=== PATIENT | female | born 1945 | race Caucasian/White ===

== ENCOUNTER → 2018-03-15 | Outpatient (CLI) | payer MEDICARE ==
--- NOTE | 2018-03-15 13:00 | US ---
EXAMINATION TYPE: US kidneys/renal and bladder DATE OF EXAM: 03/15/2018 COMPARISON: NONE CLINICAL HISTORY: N14.30 R Hydonephrosis. History of right hydronephrosis and kidney stones per patie nt EXAM MEASUREMENTS: Right Kidney: 10.2 x 3.7 x 4.0 cm Left Kidney: 8.8 x 4.1 x 4.0 cm Right Kidney: fullness to renal pelvis Left Kidney: no evidence of hydronephrosis Bladder: difficult to visualize Bilateral Jets seen: no There is no evidence for hydronephrosis at this point in time. No nephrolithiasis is seen. No wil s are identified. The urinary bladder is anechoic. Bilateral ureteral jets are seen. IMPRESSION: Minimal caliectasis on the right without aminah hydronephrosis of either kidney. Punctate nonshadowing areas are seen within both kidneys that could relate to a very small renal calculi however no discre te renal calculi are seen.
== END | disposition home or self-care (01) ==
LOC: RADUSWWP 11:23
PROVIDERS: ATTEND Urology
DX: N28.89 Other specified disorders of kidney and ureter (principal); Z88.8 Allergy status to other drugs, medicaments and biological substances
CPT/HCPCS: 76770

== ENCOUNTER → 2018-10-26 | Outpatient (CLI) | payer MEDICARE ==
--- NOTE | 2018-10-26 17:18 | PE ---
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 TECHNIQUE: Following the intravenous administration of 11.25 mCi of F-18 FDG, whole body images are performed from the skull base to the midthigh. Images are reviewed on the computer in the coronal, a xial, and sagittal planes. Reconstructed rotating images are created on independent workstation and reviewed on the computer. A noncontrast CT is performed in conjunction with the PET scan. SCAN: Subsequent Scan FINDINGS: SKULL BASE AND NECK: No areas of suspicious hypermetabolic uptake. CHEST, MEDIASTINUM, AND HILAR REGION: Slightly prominent left axillary lymph node measures 1.3 x 0.9 cm axial image 80 with mild hypermetabolic uptake, max SUV 1.78. No areas of suspicious hypermetaboli c uptake in the thorax are identified including throughout the left breast. ABDOMEN AND PELVIS: Difficult to evaluate lymph nodes versus bowel on Noncontrast CT Suspect hypermet abolic mass or adenopathy just below left hepatic lobe measuring to 2.4 x 2.3 cm image 141, max SUV i s 8.08. Additional abnormal lymph node suspected inferior peripancreatic region just anterior to the aortocaval space axial image 151 measuring 1.2 cm, max SUV 6.6. Abnormal lymph node or mass left dahlia gastric region measuring 2.8 x 1.8 cm axial image 155 with max SUV of 5.65. Some hypermetabolic soft tissue prominence inferior rectus sheath measures 3.4 x 1.7 cm image 181 with max SUV of 6.25. Nonspe cific posterior ball uptake and pelvis axial image 202 max SUV 5.27. Additional focus of hypermetabol ic uptake left mid abdominal wall max SUV 4.53 axial image 168. OSSEOUS STRUCTURES: No suspicious hypermetabolic uptake. OTHER CT: Mild calcified plaque bilateral carotid bulb level. Moderate to severe three-vessel coronary artery calcification which is noted marked underlying tim ry artery disease. Small focal anterior-inferior pericardial effusion axial image 124. Trace perihepatic and perisplenic ascites. Pneumobilia correlates with history of Whipple surgery. Sm all amount of free fluid in pelvis axial image 204 was scattered pelvic phleboliths. Osseous structures are demineralized. Grade 1 anterolisthesis L4 on L5. Multilevel facet arthropathy lower lumbar spine. IMPRESSION: Local neoplastic recurrence upper to mid abdomen is felt present with some involvement lo wer abdominal rectus sheath and pelvic bowel loops difficult to exclude.
== END | disposition home or self-care (01) ==
LOC: RADPETMAIN 09:09
PROVIDERS: ATTEND Internal Medicine Hematology & Oncology
DX: C76.2 Malignant neoplasm of abdomen (principal)
CPT/HCPCS: 78815; A9552

== ENCOUNTER 2018-10-31 | Emergency (ER) | payer MEDICARE ==
--- NOTE | 2018-10-31 12:05 | ED ---
Recheck HPI - General Chief Complaint: Recheck/Abnormal Lab/Rx Stated Complaint: elevated BP Time Seen by Provider: 10/31/18 11:43 Source: patient, RN notes reviewed, old records reviewed Mode of arrival: ambulatory Limitations: no limitations - History of Present Illness Initial Comments: This is a 3-year-old female the ER for evaluation, patient presented for outpatient procedure, blood pressure was noted to be elevated and sent over the ER for evaluation. Patient's asymptomatic chest pain shortness breath or abdominal pain, patient did take medications as prescribed this morning MD Complaint: abnormal lab (Increased blood pressure) -: unknown Returns Today for: other (Patient's sent over for evaluation of increased blood pressure) Symptoms Since Prior Visit: no new symptoms Associated Symptoms: none Treatments Prior to Arrival: other medications (Patient did take her home blood pressure medication) - Related Data Home Medications Medication Instructions Recorded Confirmed Acetaminophen Tab [Tylenol Tab] 500 mg PO Q4H PRN 10/21/18 10/31/18 Ascorbic Acid [Vitamin C] 500 mg PO DAILY 10/21/18 10/31/18 Cholecalciferol (Vitamin D3) 2,000 unit PO DAILY 10/21/18 10/31/18 [Vitamin D3] Ferrous Sulfate [Feosol] 325 mg PO Q48H 10/21/18 10/31/18 Lipase/Protease/Amylase [Creon Dr 4 cap PO TID 10/21/18 10/31/18 6,000 Units Capsule] Losartan Potassium 50 mg PO DAILY 10/21/18 10/31/18 Magnesium Oxide [Mag-Ox] 250 mg PO DAILY 10/21/18 10/31/18 Metoprolol Tartrate [Lopressor] 25 mg PO DAILY 10/21/18 10/31/18 Omeprazole 20 mg PO DAILY 10/21/18 10/31/18 Zinc 50 mg PO DAILY 10/21/18 10/31/18 Hydrochlorothiazide [Hydrodiuril] 25 mg PO DAILY 10/31/18 10/31/18 Previous Rx's Medication Instructions Recorded Hydrochlorothiazide [Hydrodiuril] 25 mg PO DAILY #30 tab 10/31/18 Allergies Allergy/AdvReac Type Severity Reaction Status Date / Time clarithromycin [From Biaxin] AdvReac LOST TASTE Verified 10/31/18 15:48 Review of Systems ROS Statement: Those systems with pertinent positive or pertinent negative responses have been documented in the HPI. ROS Other: All systems not noted in ROS Statement are negative. 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, bilateral cataracts History of Any Multi-Drug Resistant Organisms: None Reported Past Surgical History: Cholecystectomy, Tonsillectomy Additional Past Surgical History / Comment(s): whipple June 25, 2017, left knee replacement 1999, cholecystectomy, D & C in , tonsillectomy , EGD October 09, paracentesis times 2 in the past Past Anesthesia/Blood Transfusion Reactions: No Reported Reaction Additional Past Anesthesia/Blood Transfusion Reaction / Comment(s): no previous blood transfusion Past Psychological History: No Psychological Hx Reported Smoking Status: Never smoker Past Alcohol Use History: None Reported Past Drug Use History: None Reported - Past Family History Mother Family Medical History: CVA/TIA, Diabetes Mellitus, Hypertension, Osteoarthritis (OA) Father Additional Family Medical History / Comment(s): empyhsema General Exam Limitations: no limitations General appearance: alert, in no apparent distress Head exam: Present: atraumatic, normocephalic, normal inspection Eye exam: Present: normal appearance, PERRL, EOMI. Absent: scleral icterus, conjunctival injection, periorbital swelling ENT exam: Present: normal exam, mucous membranes moist Neck exam: Present: normal inspection. Absent: tenderness, meningismus, lymphadenopathy Respiratory exam: Present: normal lung sounds bilaterally. Absent: respiratory distress, wheezes, rales, rhonchi, stridor Cardiovascular Exam: Present: regular rate, normal rhythm, normal heart sounds. Absent: systolic murmur, diastolic murmur, rubs, gallop, clicks GI/Abdominal exam: Present: soft, normal bowel sounds. Absent: distended, tenderness, guarding, rebound, rigid Extremities exam: Present: normal inspection, full ROM, normal capillary refill. Absent: tenderness, pedal edema, joint swelling, calf tenderness Back exam: Present: normal inspection Neurological exam: Present: alert, oriented X3, CN II-XII intact Psychiatric exam: Present: normal affect, normal mood Skin exam: Present: warm, dry, intact, normal color. Absent: rash Course Vital Signs 10/31/18 10/31/18 11:34 12:29 Temperature 97.9 F Pulse Rate 64 55 L Respiratory 20 16 Rate Blood Pressure 177/80 168/87 O2 Sat by Pulse 99 99 Oximetry Medical Decision Making - Medical Decision Making 73 female, patient will be discharged home, started on new blood pressure medication. Patient remains asymptomatic, no headache chest pain shortness of breath or abdominal pain. Disposition Clinical Impression: Hypertension Disposition: HOME SELF-CARE Condition: Good Instructions (If sedation given, give patient instructions): Chronic Hypertension (ED), Hypertension (ED) Prescriptions: Hydrochlorothiazide [Hydrodiuril] 25 mg PO DAILY #30 tab Is patient prescribed a controlled substance at d/c from ED?: No Referrals: Chip Boo DO [Primary Care Provider] - 1-2 days
== END 2018-10-31 12:25 | disposition home or self-care (01) ==
CPT/HCPCS: 99283

== ENCOUNTER 2018-10-31 12:16 | Day surgery (SDC) | payer MEDICARE ==
[2018-10-31 09:07] VITALS: RESP 20; TEMP 98.1
[2018-10-31 09:35] LABS: Mean Platelet Volume 7.7; Platelet Count 130 k/uL (150-450)
[2018-10-31 09:41] LABS: Prothrombin Time 11.1 sec (9.0-12.0)
[2018-10-31 11:49] VITALS: BP 195/100; PULSE 67
[~2018-10-31 12:16] MED LIST: ALPRAZolam 0.25 MG TAB PO STA
--- NOTE | 2018-10-31 15:56 | US ---
Discontinued biopsy abdominal mass HISTORY: Abdominal mass, abnormal PET/CT Correlation to PET CT 10/26/2018 Real-time ultrasound demonstrates the heterogeneous mass measuring approximately 2 cm in diameter in the left hemiabdomen just deep to the rectus musculature. Patient shows multiple elevated blood pressure measurements prior to the biopsy. Biopsy is aborted at this time. Patient to be rescheduled. IMPRESSION: Discontinued abdominal biopsy
== END 2018-10-31 12:21 | disposition home or self-care (01) ==
LOC: RADPROMAIN 12:16
PROVIDERS: ATTEND Internal Medicine Hematology & Oncology
DX: R93.5 Abnormal findings on diagnostic imaging of other abdominal regions, including retroperitoneum (principal); C24.1 Malignant neoplasm of ampulla of Vater; Z53.8 Procedure and treatment not carried out for other reasons; R03.0 Elevated blood-pressure reading, without diagnosis of hypertension
CPT/HCPCS: 36415; 76536; 85049; 85610

== ENCOUNTER → 2018-11-11 | Day surgery (SDC) | payer MEDICARE ==
[2018-11-11 08:57] VITALS: TEMP 97.5
[2018-11-11 09:04] LABS: Mean Platelet Volume 7.4; Platelet Count 190 k/uL (150-450)
[2018-11-11 09:07] LABS: Prothrombin Time 11.1 sec (9.0-12.0)
[2018-11-11 10:27] VITALS: RESP 16
[2018-11-11 12:06] VITALS: BP 129/79
--- NOTE | 2018-11-11 12:38 | US ---
EXAMINATION TYPE: US biopsy abd/retroperi mass DATE OF EXAM: 11/11/2018 HISTORY: Abdominal mass, history ampullary cancer. FINDINGS: Maximal barrier technique was utilized. The skin overlying a suitable path to the patient' s anterior abdominal mass was localized with ultrasound and the overlying skin prepped and draped. U ltrasound was utilized with sterile technique. Lidocaine was used for local anesthesia. A skin pamela was made with a scalpel. An 18-gauge needle was advanced under direct ultrasound guidance and core specimen obtained of the mass. Specimen submitted in formalin to Pathology. Following the procedure , hemostasis achieved and the patient is discharged in stable condition without complication. IMPRESSION:STATUS POST ULTRASOUND GUIDED CORE BIOPSY OF abdominal MASS, PATHOLOGY IS PENDING. THIS P ROCEDURE IS PERFORMED BY THE UNDERSIGNED.
[2018-11-11 12:55] VITALS: PULSE 64
== END | disposition home or self-care (01) ==
LOC: RADPROMAIN 08:25
PROVIDERS: ATTEND Internal Medicine Hematology & Oncology
DX: C78.6 Secondary malignant neoplasm of retroperitoneum and peritoneum (principal); Z85.09 Personal history of malignant neoplasm of other digestive organs
CPT/HCPCS: 36415; 49180; 85049; 85610; 88305; 88341; 88342